=== PATIENT | female | born 1970 ===

== ENCOUNTER 2017-01-13 19:55 | Emergency (ER) | payer OTHER ==
[2017-01-13 20:10] VITALS: BP 127/84; PULSE 80; RESP 14; TEMP 98.1; O2SAT 99
--- NOTE | 2017-01-13 20:55 | C.PDOC ---
History Of Present Illness 46 year old female with a Hx of chronic back pain since 2010 who presents to the ER requesting x-rays. 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 Patient's PMD gave her an Rx to get an x-ray of the sacrum and coccyx; however, she did not have enough time to make it to the diagnostic center. Denies physical complaints at this time. Time Seen by Provider: 01/13/17 20:16 Chief Complaint (Nursing): Back Pain History Per: Patient History/Exam Limitations: no limitations Onset/Duration Of Symptoms: Days Current Symptoms Are (Timing): Still Present Severity: None Previous Symptoms: Back Pain, Chronic Pain Associated Symptoms: None Recent travel outside of the [place]: No Past Medical History Reviewed: Historical Data, Nursing Documentation, Vital Signs Vital Signs: Last Vital Signs Temp 98.1 F 01/13/17 20:07 Pulse 80 01/13/17 20:07 Resp 14 01/13/17 20:07 BP 127/84 01/13/17 20:07 Pulse Ox 99 01/14/17 01:19 - Medical History PMH: Back Problems Surgical History: No Surg Hx Family History: States: Unknown Family Hx - Social History Hx Alcohol Use: No Hx Substance Use: No - Immunization History Hx Tetanus Toxoid Vaccination: No Review Of Systems Genitourinary: Negative for: Dysuria, Incontinence, Hematuria Musculoskeletal: Positive for: Back Pain (Chronic) Neurological: Negative for: Weakness, Numbness Physical Exam - Physical Exam Appears: Non-toxic, No Acute Distress Skin: Normal Color, Warm, Dry Head: Atraumatic, Normacephalic Eye(s): bilateral: Normal Inspection, EOMI Neck: Normal Back: Normal Inspection, No CVA Tenderness, No Vertebral Tenderness, No Paraspinal Tenderness, No Straight Leg Raising Extremity: Normal ROM (x4) Neurological/Psych: Oriented x3, Normal Motor, Normal Sensation Gait: Steady ED Course And Treatment O2 Sat by Pulse Oximetry: 99 (Room air) Pulse Ox Interpretation: Normal Disposition Counseled Patient/Family Regarding: Diagnosis - Disposition Referrals: Slick Boston MD [Family Provider] - Disposition: HOME/ ROUTINE Disposition Time: 20:52 Condition: STABLE Additional Instructions: Please go to outpatient imaging for your XRs continue pain meds Return to ER if worse Instructions: Chronic Back Pain (ED) Forms: [employer] ([place]an) - Clinical Impression Clinical Impression: Chronic back pain - Scribe Statement The provider has reviewed the documentation as recorded by the Scribesthela Vogt All medical record entries made by the Scribe were at my direction and personally dictated by me. I have reviewed the chart and agree that the record accurately reflects my personal performance of the history, physical exam, medical decision making, and the department course for this patient. I have also personally directed, reviewed, and agree with the discharge instructions and disposition.
== END 2017-01-13 21:00 | disposition home or self-care (01) ==
LOC: C.ER 19:55
DX: G89.29 Other chronic pain (principal); M54.9 Dorsalgia, unspecified

== ENCOUNTER 2017-10-20 11:11 | Emergency (ER) | payer OTHER ==
[2017-10-20 11:41] VITALS: RESP 18
--- NOTE | 2017-10-20 12:58 | C.PDOC ---
History Of Present Illness 47yo female with history of uterine fibroids, presents to ED with complaints of lower abdominal pain radiating to her back for the past 3 days. Pt notes she started her menses today but has been irregular the last few months. She also reports associated soft stool since yesterday. Pt notes she has h/o similar symptoms, was instructed to get US, and has not followed up. She denies any fever, chills, nausea, vomiting, dysuria, hematuria, vaginal discharge, blood in stool, melena, abdominal pain, or urinary frequency. Time Seen by Provider: 10/20/17 11:58 Chief Complaint (Nursing): Abdominal Pain History Per: Patient History/Exam Limitations: no limitations Onset/Duration Of Symptoms: Days (3) Current Symptoms Are (Timing): Still Present Location Of Pain/Discomfort: Suprapubic Radiation Of Pain To:: Back Quality Of Discomfort: "Pain" Associated Symptoms: Diarrhea, Back Pain. denies: Fever, Chills, Nausea, Vomiting, Urinary Symptoms Additional History Per: Patient Abnormal Vaginal Bleeding: Yes Past Medical History Reviewed: Historical Data, Nursing Documentation, Vital Signs Vital Signs: Last Vital Signs Temp 98.9 F 10/20/17 16:42 Pulse 79 10/20/17 16:42 Resp 18 10/20/17 16:42 BP 120/81 10/20/17 16:42 Pulse Ox 99 10/20/17 17:49 - Medical History PMH: Anemia, Back Problems Surgical History: No Surg Hx Family History: States: No Known Family Hx, Unknown Family Hx - Social History Hx Tobacco Use: No Hx Alcohol Use: No Hx Substance Use: No - Immunization History Hx Tetanus Toxoid Vaccination: No Review Of Systems Except As Marked, All Systems Reviewed And Found Negative. Constitutional: Negative for: Fever, Chills Cardiovascular: Negative for: Chest Pain Respiratory: Negative for: Shortness of Breath Gastrointestinal: Positive for: Abdominal Pain, Diarrhea. Negative for: Nausea , Vomiting Genitourinary: Positive for: Vaginal Bleeding. Negative for: Dysuria, Frequency , Hematuria Musculoskeletal: Positive for: Back Pain Physical Exam - Physical Exam Appears: Non-toxic Skin: Normal Color, Warm, Dry Head: Atraumatic, Normacephalic Eye(s): bilateral: Normal Inspection, EOMI Nose: Normal Oral Mucosa: Moist Neck: Normal ROM, Supple Chest: Symmetrical Cardiovascular: Rhythm Regular Respiratory: Normal Breath Sounds, No Accessory Muscle Use Gastrointestinal/Abdominal: Soft, Tenderness (mild suprapubic), No Mass, No Guarding, No Rebound Back: No CVA Tenderness, No Vertebral Tenderness, Paraspinal Tenderness (mild bilateral paralumbar tenderness) Extremity: Normal ROM, No Pedal Edema Neurological/Psych: Oriented x3 ED Course And Treatment - Laboratory Results Result Diagrams: 10/20/17 13:37 10/20/17 13:37 O2 Sat by Pulse Oximetry: 99 (RA) Pulse Ox Interpretation: Normal - CT Scan/US CT Abdomen/Pelvis Other Rad Studies (CT/US): Read By Radiologist, Radiology Report Reviewed CT/US Interpretation: FINDINGS: LOWER THORAX: Lung bases are clear without focal consolidation. . No evidence of effusion or basilar pneumothorax. Heart size normal. No significant pericardial effusion. Tiny hiatal hernia. LIVER: Liver exhibits normal size measuring approximately 15 cm in CC dimension. . There is a small approximately 12.7 mm elliptical shaped focus low attenuation right lobe liver that exhibits Hounsfield units in the low double digits consistent with small cyst. An additional slightly smaller focus low attenuation left lobe liver measuring approximately at 9 mm exhibits Hounsfield units in the low ranging between lobe 30s and low 40s possibly representing a hemangioma. Followup interval recommended to assess stability. Alternately, non emergent triple phase CT scan liver could be performed further evaluation. Portal and splenic veins are opacified. GALLBLADDER AND BILE DUCTS: Unremarkable. PANCREAS: Unremarkable. No gross lesion or ductal dilatation. SPLEEN: Unremarkable. ADRENALS: Unremarkable. No mass. KIDNEYS AND URETERS: Kidneys demonstrate symmetric nephrograms. There is a very tiny approximately 3 mm elliptical shaped low-attenuation focus anterior cortex mid pole left kidney which is too small to characterize though statistically likely represents a small cyst. No evidence of nephrolithiasis or hydronephrosis. VASCULATURE: Unremarkable. No aortic aneurysm. BOWEL: Evaluation of the bowel is limited due to the lack of oral contrast material. Stomach is incompletely distended. Visualized loops of small bowel exhibit normal contour and caliber. No evidence acute mechanical small bowel obstruction. Stool and air seen throughout the large bowel. No definitive evidence of abnormal mural wall thickening. APPENDIX: Normal-appearing appendix best seen on coronal image number [id number]. PERITONEUM: Unremarkable. No free fluid. No free air. Small fat containing umbilical hernia. LYMPH NODES: There are a few small nonspecific retroperitoneal and mesenteric lymph nodes. BLADDER: Urinary bladder physiologically distended. No evidence of intraluminal urinary bladder calculi. REPRODUCTIVE: Prominent endometrium. . Note made of several low- attenuation foci scattered throughout the myometrium possibly representing uterine fibroids. . Questionable bilateral ovarian cysts. Followup pelvic ultrasound recommended for further evaluation. BONES: Minor multilevel degenerative the lower thoracic and lumbar spine. No acute compression fractures no retropulsed fragments. . Probable small osteoma or bone island within the left aspect of the sacrum the left femoral head. OTHER FINDINGS: None. IMPRESSION: Mild fatty hepatic infiltration. There is a presumed small cysts right lobe liver with a smaller focal area low attenuation left lobe that exhibits Hounsfield units higher than simple cyst ; this could represent hemangioma. Followup nonemergent triple phase CT scan of the liver could be performed to confirm and exclude other pathology. Mild fatty hepatic infiltration. Prominent endometrium. . Note made of several low-attenuation foci scattered throughout the myometrium possibly representing uterine fibroids. . Questionable bilateral ovarian cysts. Followup pelvic ultrasound recommended for further evaluation. Progress Note: Labs, urinalysis, and CT Abdomen/Pelvis ordered. Patient given IV Fluids, toradol IV. On reevaluation, patient reports feeling better. Patient is resting comfortably, abdomen remains soft, and patient is tolerating PO. Patient instructed to follow up with ELECTRIC SWITCH TESTER in 1-2 days. Disposition - Disposition Disposition: HOME/ ROUTINE Disposition Time: 16:10 Condition: STABLE Additional Instructions: Follow up with your primary medical doctor or clinic in 2-5 days for further evaluation. Take medications as prescribed. Return to the emergency department at any time if symptoms persist or worsen. Prescriptions: Naproxen [Naprosyn] 1 tab PO BID PRN #20 tab PRN Reason: Pain Instructions: Uterine Fibroids (DC) Forms: [employer] (Thai) Print Language: ARMENIAN - Clinical Impression Clinical Impression: Dysmenorrhea, Uterine fibroid - PA / FLIGHT ENGINEER PERFORMANCE QUALIFIED / Resident Statement MD/DO has reviewed & agrees with the documentation as recorded. - Scribe Statement The provider has reviewed the documentation as recorded by the Scribe (Claudia Amador) Provider Attestation: All medical record entries made by the Scribe were at my direction and personally dictated by me. I have reviewed the chart and agree that the record accurately reflects my personal performance of the history, physical exam, medical decision making, and the department course for this patient. I have also personally directed, reviewed, and agree with the discharge instructions and disposition.
[2017-10-20] MEDS ORDERED: Sodium Chloride 0.9% 1,000 ML IV ONE (13:02)
[2017-10-20] MEDS ORDERED: Sodium Chloride 0.9% 1,000 ML ONE (13:37)
[2017-10-20 13:40] LABS: BASO % 0.3 % (0.0-2.0); EOS # 0.3 K/uL (0.0-0.7); EOS % 5.1 % (0.0-4.0); HEMOGLOBIN 11.8 g/dL (11.0-16.0); LYMPH # 1.9 K/uL (1.0-4.3); LYMPH % 29.9 % (20.0-40.0); MEAN CELL VOLUME 79.6 fL (81.0-99.0); MEAN CORPUSCULAR HEMOGLOBIN 26.9 pg (27.0-31.0); MEAN CORPUSCULAR HGB CONC 33.8 g/dL (33.0-37.0); MEAN PLATELET VOLUME 8.3 fL (7.2-11.7); MONO # 0.4 K/uL (0.0-0.8); MONO % 6.1 % (0.0-10.0); NEUT # 3.8 K/uL (1.8-7.0); NEUT % 58.6 % (50.0-75.0); RBC 4.38 Mil/uL (3.80-5.20); RED CELL DISTRIBUTION WIDTH 16.6 % (11.5-14.5); WHITE BLOOD COUNT 6.5 K/uL (4.8-10.8)
[2017-10-20 13:45] VITALS: O2SAT 99
[2017-10-20 13:47] LABS: HCG,QUALITATIVE URINE NEGATIVE (NEGATIVE)
[2017-10-20 13:52] LABS: ALB/GLOB RATIO 1.1 (1.0-2.1); ALBUMIN 3.9 g/dL (3.5-5.0); ALT/SGPT 12 U/L (9-52); AST/SGOT 22 U/L (14-36); BLOOD UREA NITROGEN 9 mg/dL (7-17); CALCIUM 8.6 mg/dl (8.6-10.4); GFR AFRICAN-AMERICAN > 60; GFR NON-AFRICAN AMERICAN > 60; LIPASE 145 U/L (23-300)
[2017-10-20 13:55] LABS: SQUAMOUS EPITHIAL 1 /hpf (0-5); URINE BILIRUBIN NEGATIVE (NEGATIVE); URINE BLOOD 2+ (NEGATIVE); URINE CLARITY Clear (Clear); URINE COLOR Straw (YELLOW); URINE GLUCOSE (UA) NORMAL (Normal); URINE LEUKOCYTE ESTERASE NEG Leu/uL (Negative); URINE PROTEIN NEGATIVE (NEGATIVE); URINE UROBILINOGEN NORMAL mg/dL (0.2-1.0)
[2017-10-20] MEDS ORDERED: Iodixanol 320 MG/ML 100 ML BOTTLE IV ONE (14:17)
--- NOTE | 2017-10-20 16:07 | CT ---
PROCEDURE: CT Abdomen and Pelvis with contrast HISTORY: Pain COMPARISON: None. TECHNIQUE: Contrast dose: 100 cc Visipaque 320 Radiation dose: Total exam DLP = 561.28 mGy-cm. This CT exam was performed using one or more of the following dose reduction techniques: Automated exposure control, adjustment of the mA and/or kV according to patient size, and/or use of iterative reconstruction technique. . FINDINGS: LOWER THORAX: Lung bases are clear without focal consolidation. . No evidence of effusion or basilar pneumothorax. Heart size normal. No significant pericardial effusion. Tiny hiatal hernia. LIVER: Liver exhibits normal size measuring approximately 15 cm in CC dimension. . There is a small approximately 12.7 mm elliptical shaped focus low attenuation right lobe liver that exhibits Hounsfield units in the low double digits consistent with small cyst. An additional slightly smaller focus low attenuation left lobe liver measuring approximately at 9 mm exhibits Hounsfield units in the low ranging between lobe 30s and low 40s possibly representing a hemangioma. Followup interval recommended to assess stability. Alternately, non emergent triple phase CT scan liver could be performed further evaluation. Portal and splenic veins are opacified. GALLBLADDER AND BILE DUCTS: Unremarkable. PANCREAS: Unremarkable. No gross lesion or ductal dilatation. SPLEEN: Unremarkable. ADRENALS: Unremarkable. No mass. KIDNEYS AND URETERS: Kidneys demonstrate symmetric nephrograms. There is a very tiny approximately 3 mm elliptical shaped low-attenuation focus anterior cortex mid pole left kidney which is too small to characterize though statistically likely represents a small cyst. No evidence of nephrolithiasis or hydronephrosis. VASCULATURE: Unremarkable. No aortic aneurysm. BOWEL: Evaluation of the bowel is limited due to the lack of oral contrast material. Stomach is incompletely distended. Visualized loops of small bowel exhibit normal contour and caliber. No evidence acute mechanical small bowel obstruction. Stool and air seen throughout the large bowel. No definitive evidence of abnormal mural wall thickening. APPENDIX: Normal-appearing appendix best seen on coronal image number [id number]. PERITONEUM: Unremarkable. No free fluid. No free air. Small fat containing umbilical hernia. LYMPH NODES: There are a few small nonspecific retroperitoneal and mesenteric lymph nodes. BLADDER: Urinary bladder physiologically distended. No evidence of intraluminal urinary bladder calculi. REPRODUCTIVE: Prominent endometrium. . Note made of several low-attenuation foci scattered throughout the myometrium possibly representing uterine fibroids. . Questionable bilateral ovarian cysts. Followup pelvic ultrasound recommended for further evaluation. BONES: Minor multilevel degenerative the lower thoracic and lumbar spine. No acute compression fractures no retropulsed fragments. . Probable small osteoma or bone island within the left aspect of the sacrum the left femoral head OTHER FINDINGS: None. IMPRESSION: Mild fatty hepatic infiltration. There is a presumed small cysts right lobe liver with a smaller focal area low attenuation left lobe that exhibits Hounsfield units higher than simple cyst ; this could represent hemangioma. Followup nonemergent triple phase CT scan of the liver could be performed to confirm and exclude other pathology. Mild fatty hepatic infiltration. Prominent endometrium. . Note made of several low-attenuation foci scattered throughout the myometrium possibly representing uterine fibroids. . Questionable bilateral ovarian cysts. Followup pelvic ultrasound recommended for further evaluation.
[2017-10-20 16:44] VITALS: BP 120/81; PULSE 79; TEMP 98.9
== END 2017-10-20 16:44 | disposition home or self-care (01) ==
LOC: C.ER 11:11
DX: D25.9 Leiomyoma of uterus, unspecified (principal); N94.6 Dysmenorrhea, unspecified
CPT/HCPCS: 74177; 80053; 81001; 83690; 84703; 85025; 96361; 96374; 99285; J1885; J7030; Q9967

== ENCOUNTER 2018-07-24 09:44 | Emergency (ER) | payer OTHER ==
[2018-07-24 09:54] VITALS: BMI 29.2
[2018-07-24] MEDS ORDERED: Sodium Chloride 0.9% 1,000 ML IV ONE (10:14)
[2018-07-24] MEDS ORDERED: Sodium Chloride 0.9% 1,000 ML ONE (10:27)
--- NOTE | 2018-07-24 10:39 | C.PDOC ---
History Of Present Illness Patient is a 47 year old female, with a PMHx of uterine fibroids and dysmenorrhea, who presents to the ED c/o vaginal spotting with associated suprapubic pain that began yesterday. Patient notes small amounts of clots and blood in her underwear and states that she has unregular periods. Patient states that on Jun.25 she was told she was and that on the she was supposed to go to the OBGYN to determine the gestational age. She denies any alcohol, tobacco, or illicit drug use. Patient is currently only taking prenatals. Patient denies any fever, chills, nausea, vomiting, diarrhea, back pain, CP, or SOB. LMP: 04/04/2018 and has had 2 miscarriages. Time Seen by Provider: 07/24/18 09:57 Chief Complaint (Nursing): Female Genitourinary History Per: Patient History/Exam Limitations: no limitations Onset/Duration Of Symptoms: Days (1) Current Symptoms Are (Timing): Still Present Location Of Pain/Discomfort: Suprapubic Associated Symptoms: Other (suprapubic pain). denies: Fever, Chills, Nausea, Vomiting, Diarrhea, Back Pain, Chest Pain Recent travel outside of the [place]: No Additional History Per: Patient Abnormal Vaginal Bleeding: Yes Last Menstral Period: 04/04/2018 : 6 Para: 3 Past Medical History Reviewed: Historical Data, Nursing Documentation, Vital Signs Vital Signs: Last Vital Signs Temp 98.5 F 07/24/18 09:53 Pulse 77 07/24/18 09:53 Resp 20 07/24/18 09:53 BP 105/71 07/24/18 09:53 Pulse Ox 99 07/24/18 09:53 - Medical History PMH: Anemia, Back Problems Surgical History: No Surg Hx Family History: States: Unknown Family Hx - Social History Hx Tobacco Use: No Hx Alcohol Use: No Hx Substance Use: No - Immunization History Hx Tetanus Toxoid Vaccination: No Hx Influenza Vaccination: No Hx Pneumococcal Vaccination: No Review Of Systems Constitutional: Negative for: Fever, Chills Cardiovascular: Negative for: Chest Pain Respiratory: Negative for: Shortness of Breath Gastrointestinal: Positive for: Abdominal Pain (suprapubic). Negative for: Nausea, Vomiting, Diarrhea Genitourinary: Positive for: Vaginal Bleeding Musculoskeletal: Negative for: Back Pain Physical Exam - Physical Exam Appears: Non-toxic, No Acute Distress Skin: Normal Color, Warm, Dry Head: Atraumatic, Normacephalic Oral Mucosa: Moist Neck: Normal ROM, Supple Chest: Symmetrical, No Deformity Cardiovascular: Rhythm Regular, No Murmur Respiratory: Normal Breath Sounds, No Rales, No Rhonchi, No Wheezing Gastrointestinal/Abdominal: Soft, Tenderness (suprapubic), No Other (mcburney's and prasad's) Back: No CVA Tenderness Extremity: Normal ROM Neurological/Psych: Oriented x3, Normal Speech, Normal Cognition ED Course And Treatment - Laboratory Results Result Diagrams: 07/24/18 10:38 07/24/18 10:38 O2 Sat by Pulse Oximetry: 99 (on RA) Pulse Ox Interpretation: Normal - CT Scan/US US Transvaginal Other Rad Studies (CT/US): Read By Radiologist, Radiology Report Reviewed CT/US Interpretation: Date of service: 07/24/2018. PROCEDURE: OB Pelvic Ultrasound. HISTORY: , BLEEDING, PAIN. COMPARISON: None available. FINDINGS: UTERUS: Single intrauterine gestation. CRL measures 1.74 cm equivalent to 8 weeks and 1 day of gestational age. Gestational sac diameter measures 3.83 cm equivalent to 9 weeks and 0 day of gestational age. age (Ultrasound estimated): 8 weeks and 4 days. Date of delivery (Ultrasound estimated) : 03/01/2019. cardiac activity is not documented on the current examination. Toshia-gestational hemorrhage: None. Uterus measures 9.6 x 8.0 x 9.7 cm. Retroverted. CERVIX: Long and closed. No cervical abnormality seen. RIGHT OVARY: Measures 2.5 x 1.3 x 2.5 cm. No mass. Normal flow. LEFT OVARY: Measures 3.6 x 2.3 x 2.9 cm. No mass. Normal flow. There is a 1.8 x 1.4 x 1.7 cm cyst. FREE FLUID: None. OTHER FINDINGS: None. IMPRESSION: Single intrauterine gestation with mean gestational age of 8 weeks and 4 days. cardiac activity is not documented on the current examination concerning for demise. Clinical follow-up is advised. Important findings were discussed with Dr. Neida Loo in the ER on 07/24/2018 at 11:55 a.m. Progress Note: Plan: Labs. IV Fluids. Urinalysis. US Transvaginal - Physician Consult Information Physician Contacted: Verónica Triana Outcome Of Conversation: Discussed patient with electrical power station technician socially responsible investment adviser, no need for intervention at this time, needs follow up with her electrical power station technician. Disposition Counseled Patient/Family Regarding: Diagnosis, Need For Followup, Rx Given - Disposition Referrals: [facility] [Outside] [facility] [Outside] Disposition: HOME/ ROUTINE Disposition Time: 13:40 Condition: STABLE Additional Instructions: FOLLOW UP WITH YOUR CAREER ORIENTATION TEACHER IN 1-2 DAYS USE PAIN MEDICATION NEEDED RETURN TO EMERGENCY ROOM IF YOUR SYMPTOMS BECOME WORSE SEGUIR CON CULLEN OB / BACKEND TESTER EN 1-2 CISNEROS UTILICE MEDICAMENTOS PARA EL DOLOR SEGN LO NECESARIO VUELVA A LA CABRERA DE EMERGENCIA SI ROBY SNTOMAS SE HACEN PEOR Prescriptions: oxyCODONE/Acetaminophen [Percocet 5/325 mg Tab] 1 tab PO QID PRN #12 tab PRN Reason: Pain Instructions: Miscarriage (DC) Forms: [employer] (Georgian) Print Language: LAO - Clinical Impression Clinical Impression: demise - Scribe Statement The provider has reviewed the documentation as recorded by the Scribesthela Alves All medical record entries made by the Scribe were at my direction and personally dictated by me. I have reviewed the chart and agree that the record accurately reflects my personal performance of the history, physical exam, medical decision making, and the department course for this patient. I have also personally directed, reviewed, and agree with the discharge instructions and disposition.
[2018-07-24 10:44] LABS: BASO % 0.5 % (0.0-2.0); EOS # 0.1 K/uL (0.0-0.7); EOS % 2.2 % (0.0-4.0); LYMPH # 1.8 K/uL (1.0-4.3); LYMPH % 29.3 % (20.0-40.0); MEAN CORPUSCULAR HEMOGLOBIN 26.6 pg (27.0-31.0); MEAN CORPUSCULAR HGB CONC 32.6 g/dL (33.0-37.0); MEAN PLATELET VOLUME 8.1 fL (7.2-11.7); MONO # 0.4 K/uL (0.0-0.8); MONO % 7.1 % (0.0-10.0); NEUT # 3.7 K/uL (1.8-7.0); NEUT % 60.9 % (50.0-75.0); NRBC % 0.1 % (0.0-2.0); RBC 4.52 Mil/uL (3.80-5.20); RED CELL DISTRIBUTION WIDTH 18.4 % (11.5-14.5)
[2018-07-24 10:45] LABS: MEAN CELL VOLUME 81.7 fL (81.0-99.0)
[2018-07-24 11:03] LABS: SQUAMOUS EPITHIAL 15 /hpf (0-5); URINE BACTERIA RARE (<OCC); URINE BILIRUBIN NEGATIVE (NEGATIVE); URINE BLOOD 3+ (NEGATIVE); URINE CLARITY Hazy (Clear); URINE GLUCOSE (UA) NORMAL (Normal); URINE LEUKOCYTE ESTERASE 1+ Leu/uL (Negative); URINE PROTEIN 1+ mg/dL (NEGATIVE); URINE UROBILINOGEN NORMAL mg/dL (0.2-1.0)
[2018-07-24 11:04] LABS: URINE COLOR YELLOW (YELLOW)
[2018-07-24 11:28] LABS: ALB/GLOB RATIO 1.3 (1.0-2.1); ALBUMIN 4.2 g/dL (3.5-5.0); ALT/SGPT 9 U/L (9-52); AST/SGOT 24 U/L (14-36); BLOOD UREA NITROGEN 11 mg/dL (7-17); CALCIUM 8.5 mg/dl (8.6-10.4); GFR NON-AFRICAN AMERICAN > 60
--- NOTE | 2018-07-24 12:03 | US ---
Date of service: 07/24/2018 PROCEDURE: OB Pelvic Ultrasound HISTORY: , BLEEDING, PAIN COMPARISON: None available. FINDINGS: UTERUS: Single intrauterine gestation. CRL measures 1.74 cm equivalent to 8 weeks and 1 day of gestational age. Gestational sac diameter measures 3.83 cm equivalent to 9 weeks and 0 day of gestational age. age (Ultrasound estimated): 8 weeks and 4 days Date of delivery (Ultrasound estimated) : 03/01/2019 cardiac activity is not documented on the current examination. Toshia-gestational hemorrhage: None. Uterus measures 9.6 x 8.0 x 9.7 cm. Retroverted. CERVIX: Long and closed. No cervical abnormality seen. RIGHT OVARY: Measures 2.5 x 1.3 x 2.5 cm. No mass. Normal flow. LEFT OVARY: Measures 3.6 x 2.3 x 2.9 cm. No mass. Normal flow. There is a 1.8 x 1.4 x 1.7 cm cyst. FREE FLUID: None. OTHER FINDINGS: None. IMPRESSION: Single intrauterine gestation with mean gestational age of 8 weeks and 4 days. cardiac activity is not documented on the current examination concerning for demise. Clinical follow-up is advised. Important findings were discussed with Dr. Neida Loo in the ER on 07/24/2018 at 11:55 a.m.
[2018-07-24 12:54] VITALS: BP 99/63; PULSE 66; RESP 18; TEMP 98.2
[2018-07-24 13:22] VITALS: O2SAT 99
== END 2018-07-24 13:52 | disposition home or self-care (01) ==
LOC: C.ER 09:44
DX: O02.1 Missed abortion (principal)
CPT/HCPCS: 76805; 76817; 80053; 81001; 84702; 85025; 86850; 86900; 96360; 99284; J7030

== ENCOUNTER 2018-07-31 12:26 | Emergency (ER) | payer MEDICAID, OTHER ==
[2018-07-31 12:26] VITALS: BMI 29.2
[2018-07-31 12:58] VITALS: O2SAT 98
--- NOTE | 2018-07-31 14:58 | C.PDOC ---
History Of Present Illness 48 year old female presents to the emergency department with complaints of vaginal bleeding since yesterday. Patient reports having uterine-like contractions yesterday with normal vaginal bleeding. Patient states that she was seen in [facility] on 07-24-18 where a US diagnosed her with demise at 8 weeks. Patient's beta HCG was 4744 and blood type is O+. Patient denies weakness. Time Seen by Provider: 07/31/18 14:39 Chief Complaint (Nursing): Female Genitourinary History Per: Patient History/Exam Limitations: no limitations Onset/Duration Of Symptoms: Days (1) Current Symptoms Are (Timing): Still Present Associated Symptoms: Other (vaginal bleeding) Past Medical History Reviewed: Historical Data, Nursing Documentation, Vital Signs Vital Signs: Last Vital Signs Temp 98 F 07/31/18 12:54 Pulse 78 07/31/18 12:54 Resp 14 07/31/18 12:54 BP 122/75 07/31/18 12:54 Pulse Ox 98 07/31/18 12:54 - Medical History PMH: Anemia, Back Problems Denies: Chronic Kidney Disease Surgical History: No Surg Hx Family History: States: No Known Family Hx - Social History Hx Tobacco Use: No Hx Alcohol Use: No Hx Substance Use: No - Immunization History Hx Tetanus Toxoid Vaccination: No Hx Influenza Vaccination: No Hx Pneumococcal Vaccination: No Review Of Systems Except As Marked, All Systems Reviewed And Found Negative. Constitutional: Negative for: Fever, Chills Cardiovascular: Negative for: Chest Pain Respiratory: Negative for: Cough, Shortness of Breath Gastrointestinal: Negative for: Nausea, Vomiting, Abdominal Pain, Diarrhea Genitourinary: Positive for: Vaginal Bleeding Neurological: Negative for: Weakness Physical Exam - Physical Exam Appears: Non-toxic, No Acute Distress Skin: Normal Color, Warm, Dry Head: Atraumatic, Normacephalic Eye(s): bilateral: Normal Inspection, PERRL, EOMI Nose: Normal Oral Mucosa: Moist Neck: Normal, Supple Chest: Symmetrical, No Tenderness Cardiovascular: Rhythm Regular, No Murmur Respiratory: Normal Breath Sounds, No Rales, No Rhonchi, No Wheezing Gastrointestinal/Abdominal: Soft, Tenderness (minor suprapubic discomfort), No Guarding, No Rebound Pelvic: Other (deferred) Extremity: Normal ROM Neurological/Psych: Oriented x3, Normal Speech, Normal Cognition ED Course And Treatment O2 Sat by Pulse Oximetry: 98 (RA) Pulse Ox Interpretation: Normal Medical Decision Making Medical Decision Making: complete AB US 07/24 showed demise without cardiac activity QHCG 4744 (low for supposed 8 weeks) O+ now w normal menstrual-like bleeding, normal VS's extensively educated, no further w/u indicated at this time. Disposition Doctor Will See Patient In The: Office Counseled Patient/Family Regarding: Studies Performed, Diagnosis - Disposition Referrals: [facility] [Outside] [employer] [facility] [Outside] [facility] [Outside] [facility] [employer] [Outside] Disposition: HOME/ ROUTINE Disposition Time: 14:58 Condition: GOOD Additional Instructions: sigue abiel cuidados normales del flujo menstrual 50% mas pesada 50% dura mas No hay mas evaluaci'n requerido a hora. se puede embarasarse en el mes que viene Instructions: Miscarriage (DC) Forms: [employer] ([place]) Print Language: SLOVAK - Clinical Impression Clinical Impression: Complete - Scribe Statement The provider has reviewed the documentation as recorded by the Scribe (Trevor Santiagov porsche) Provider Attestation: All medical record entries made by the Scribe were at my direction and personally dictated by me. I have reviewed the chart and agree that the record accurately reflects my personal performance of the history, physical exam, medical decision making, and the department course for this patient. I have also personally directed, reviewed, and agree with the discharge instructions and disposition.
[2018-07-31 15:17] VITALS: BP 127/79; PULSE 81; RESP 16; TEMP 97.9
== END 2018-07-31 15:16 | disposition home or self-care (01) ==
LOC: C.ER 12:26
DX: O03.9 Complete or unspecified spontaneous abortion without complication (principal); Z3A.08 8 weeks gestation of pregnancy